=== PATIENT | male | born 2000 | race Caucasian/White ===

== ENCOUNTER 2021-06-17 13:46 | Emergency (ER) | payer BC, OTHER ==
[~2021-06-17] VITALS: Ht 170.2 cm; Wt 45.4 kg
[2021-06-17 13:47] VITALS: BP 108/74
[2021-06-17 15:51] LABS: HEMATOCRIT 31.2 % (42.0-52.0); HEMOGLOBIN 10.1 gm/dL (14.0-18.0); MCH 25.5 pg (26.0-34.0); MCHC 32.5 g/dL (28.0-37.0); MCV 78.4 fL (80.0-100.0); RBC 3.98 mil/uL (4.50-6.00); RDW 21.9 % (10.5-14.5); WBC 6.9 thou/uL (4.0-11.0)
[2021-06-17 16:00] LABS: CREATININE 0.7 mg/dL (0.7-1.3); POTASSIUM 3.9 mmol/L (3.5-5.1)
[2021-06-17 16:06] LABS: ALBUMIN 2.4 g/dL (3.4-5.0); TOTAL BILIRUBIN 0.6 mg/dL (0.2-1.0); TOTAL PROTEIN 6.6 g/dL (6.4-8.2)
[2021-06-17] MEDS ORDERED: NAPROSYN500 M1 PO (17:06)
== END 2021-06-17 17:10 | disposition home or self-care (01) ==
LOC: ER 13:46
PROVIDERS: Physician Assistant
DX: G62.9 Polyneuropathy, unspecified (principal); D64.9 Anemia, unspecified